=== PATIENT | male | born 1950 | race Two or more races ===

== ENCOUNTER 2024-06-05 15:46 | Inpatient (IN) | payer OTHER, MEDICARE, BC ==
--- NOTE | 2024-06-05 16:09 | ED ---
General Adult HPI - General Chief complaint: Shortness of Breath Stated complaint: echo Time Seen by Provider: 06/05/24 15:47 Source: patient, EMS, RN notes reviewed Mode of arrival: EMS Limitations: no limitations - History of Present Illness Initial comments: Patient is a 74-year-old male present to the emergency department as a transfer from [facility]. Patient has been having some chest discomfort and dyspnea over the past couple of weeks. Patient is currently symptom-free at this time. Symptoms are worse with lying down. No history of similar symptoms previously. Patient did have CT scan done there with concerns for pericardial effusion and was transferred to our emergency department. - Related Data Allergies Allergy/AdvReac Type Severity Reaction Status Date / Time No Known Allergies Allergy Verified 06/05/24 15:52 Review of Systems ROS Statement: Those systems with pertinent positive or pertinent negative responses have been documented in the HPI. ROS Other: All systems not noted in ROS Statement are negative. Constitutional: Denies: fever Eyes: Denies: eye pain ENT: Denies: ear pain Respiratory: Reports: as per HPI. Denies: cough Cardiovascular: Reports: as per HPI, chest pain, orthopnea Endocrine: Denies: fatigue Gastrointestinal: Denies: abdominal pain, vomiting Genitourinary: Denies: dysuria Musculoskeletal: Denies: back pain Past Medical History Past Medical History: Hyperlipidemia, Hypertension Past Surgical History: Orthopedic Surgery Smoking Status: Former smoker Past Alcohol Use History: Daily Past Drug Use History: None Reported General Exam Limitations: no limitations General appearance: alert, in no apparent distress Head exam: Present: normocephalic Eye exam: Present: normal appearance Neck exam: Present: normal inspection Respiratory exam: Present: normal lung sounds bilaterally Cardiovascular Exam: Present: regular rate, normal rhythm, normal heart sounds GI/Abdominal exam: Present: soft. Absent: tenderness Extremities exam: Present: normal inspection. Absent: pedal edema, calf tenderness Back exam: Present: normal inspection Neurological exam: Present: alert Psychiatric exam: Present: normal affect, normal mood Skin exam: Present: normal color Course Vital Signs 06/05/24 15:48 Temperature 98.4 F Pulse Rate 95 Respiratory 18 Rate Blood Pressure 148/84 O2 Sat by Pulse 98 Oximetry EKG Findings - EKG Results: EKG: interpreted by ERMD (Right bundle branch block), sinus rhythm, normal axis, normal ST/T Medical Decision Making - Medical Decision Making Was pt. sent in by a medical professional or institution (, [facility], [facility], urgent care, hospital, or group home...) When possible be specific @ -Patient was sent from [facility] Did you speak to anyone other than the patient for history (EMS, parent, family, police, friend...)? What history was obtained from this source @ -Speak with transferring physician Dr. Sanders Did you review nursing and triage notes (agree or disagree)? Why? @ -I reviewed and agree with nursing and triage notes Were old charts reviewed (outside hosp., previous admission, EMS record, old EKG, old radiological studies, urgent care reports/EKG's, group home records)? Report findings @ -Chart was reviewed from [facility] Differential Diagnosis (chest pain, altered mental status, abdominal pain women, abdominal pain men, vaginal bleeding, weakness, fever, dyspnea, syncope, headache, dizziness, GI bleed, back pain, seizure, CVA, palpatations, mental health, musculoskeletal)? @ -Differential Dyspnea: Coronary syndrome, arrhythmia, tamponade, asthma, COPD, pulmonary embolism, pneumonia, pneumothorax, pulmonary effusion, anaphylaxis, diabetic ketoacidosis, flailed chest, pulmonary contusion, diaphragmatic rupture, anemia, neuromuscular, this is not meant to be an all-inclusive list. EKG interpreted by me (3pts min.). @ -As above X-rays interpreted by me (1pt min.). @ -None done CT interpreted by me (1pt min.). @ -None done U/S interpreted by me (1pt. min.). @ -None done What testing was considered but not performed or refused? (CT, X-rays, U/S, labs)? Why? @ -None What meds were considered but not given or refused? Why? @ -None Did you discuss the management of the patient with other professionals (professionals i.e. , [facility], [facility], lab, RT, psych nurse, high school social science teacher, business lawyer, teacher, promotions officer, bilingual case manager)? Give summary @ -Case was discussed with Dr. Barron who will admit covering Dr. Banerjee. Case also discussed with Dr. Rendon who will consult with cardiology Was smoking cessation discussed for >3mins.? @ -No Was critical care preformed (if so, how long)? @ -No Were there social determinants of health that impacted care today? How? (Homelessness, low income, unemployed, alcoholism, drug addiction, transportation, low edu. Level, literacy, decrease access to med. care, snf, rehab)? @ -No Was there de-escalation of care discussed even if they declined (Discuss DNR or withdrawal of care, Hospice)? DNR status @ -No What co-morbidities impacted this encounter? (DM, HTN, Smoking, COPD, CAD, Cancer, CVA, ARF, Chemo, Hep., AIDS, mental health diagnosis, sleep apnea, morbid obesity)? @ -None Was patient admitted / discharged? Hospital course, mention meds given and route, prescriptions, significant lab abnormalities, going to OR and other pertinent info. @ -Patient presents as a transfer from [facility]. Patient has had some chest discomfort and dyspnea and orthopnea over the past couple of weeks, somewhat progressive, near symptom-free at this time. CT scan done there concerning for pericardial effusion. Patient will be admitted with cardiac consult. Admission orders written. Labs appear to be limited from there and additional labs are reordered here. Undiagnosed new problem with uncertain prognosis? @ -No Drug Therapy requiring intensive monitoring for toxicity (Heparin, Nitro, Insulin, Cardizem)? @ -No Were any procedures done? @ -No Diagnosis/symptom? @ -Pericardial effusion Acute, or Chronic, or Acute on Chronic? @ -Acute Uncomplicated (without systemic symptoms) or Complicated (systemic symptoms)? @ -Complicated with associated chest discomfort and dyspnea Side effects of treatment? @ -No Exacerbation, Progression, or Severe Exacerbation? @ -No Poses a threat to life or bodily function? How? (Chest pain, [place], [place], pneumonia, PE, COPD, DKA, ARF, appy, cholecystitis, CVA, Diverticulitis, Homicidal, Suicidal, threat to staff... and all critical care pts) @ -Threat to cardiac function - Lab Data Result diagrams: 06/05/24 16:16 Lab Results 06/05/24 Range/Units 16:16 WBC 8.8 (3.8-10.6) k/uL RBC 3.82 L (4.30-5.90) m/uL Hgb 12.0 L (13.0-17.5) gm/dL Hct 35.6 L (39.0-53.0) % MCV 93.3 (80.0-100.0) fL MCH 31.4 (25.0-35.0) pg MCHC 33.6 (31.0-37.0) g/dL RDW 12.3 (11.5-15.5) % Plt Count 363 (150-450) k/uL MPV 8.7 Neutrophils % 88 % Lymphocytes % 6 % Monocytes % 4 % Eosinophils % 2 % Basophils % 0 % Neutrophils # 7.7 (1.3-7.7) k/uL Lymphocytes # 0.5 L (1.0-4.8) k/uL Monocytes # 0.4 (0-1.0) k/uL Eosinophils # 0.1 (0-0.7) k/uL Basophils # 0.0 (0-0.2) k/uL Disposition Clinical Impression: Pericardial effusion Disposition: ADMITTED IP TO THIS HOSP Is patient prescribed a controlled substance at d/c from ED?: No Referrals: Lorie Reveles MD [Primary Care Provider] - 1-2 days Time of Disposition: 16:36
[2024-06-05 16:26] LABS: Basophils % (A) 0 %; Eosinophils # (A) 0.1 k/uL (0-0.7); Eosinophils % (A) 2 %; HCT 35.6 % (39.0-53.0); Lymphocytes # (A) 0.5 k/uL (1.0-4.8); Lymphocytes % (A) 6 %; MCH 31.4 pg (25.0-35.0); MCHC 33.6 g/dL (31.0-37.0); MCV 93.3 fL (80.0-100.0); Mean Platelet Volume 8.7; Monocytes # (A) 0.4 k/uL (0-1.0); Monocytes % (A) 4 %; Neutrophils # (A) 7.7 k/uL (1.3-7.7); Neutrophils % (A) 88 %; Platelet Count 363 k/uL (150-450); RBC 3.82 m/uL (4.30-5.90); RDW 12.3 % (11.5-15.5); WBC 8.8 k/uL (3.8-10.6)
[2024-06-05] MEDS ORDERED: NALOXONE 0.4 MG/ML 1 ML VIAL IV PRN (16:38)
[2024-06-05 16:41] LABS: INR 1.2 (<1.2); Prothrombin Time 12.6 sec (10.0-12.5)
[2024-06-05] MEDS: PANTOPRAZOLE 40 MG/10 ML VIAL IV SCH (16:51)
[2024-06-05 17:17] LABS: ALT 323 U/L (4-49); AST 298 U/L (17-59); African American GFR (CKD) 83 (>60 ml/min/1.73 sqM); Albumin 3.2 g/dL (3.5-5.0); Alkaline Phosphatase 175 U/L (38-126); Anion Gap 6 mmol/L; Blood Urea Nitrogen 16 mg/dL (9-20); Calcium 9.1 mg/dL (8.4-10.2); Carbon Dioxide 28 mmol/L (22-30); Chloride 97 mmol/L (98-107); Glucose 168 mg/dL (74-99); Magnesium 1.9 mg/dL (1.6-2.3); Non-African American GFR(CKD) 72 (>60 ml/min/1.73 sqM); Potassium 3.9 mmol/L (3.5-5.1); Sodium 131 mmol/L (137-145); Total Bilirubin 0.9 mg/dL (0.2-1.3)
[2024-06-05 17:25] LABS: NT-Pro-B-Type Natriuretic Pept 980 pg/mL
--- NOTE | 2024-06-05 17:51 | CA ---
Transthoracic Echo Report Name: Facundo Gamble Age: 74 Gender: M : 1950 Exam Date: 06/05/2024 16:42 Exam Location: [facility] Ht (in): 70 Wt (lb): 221 Ordering Physician: Mulugeta Jenkins DO Attending/Referring Phys: [employer] Consultant Gabby Chan RDCS Procedure CPT: Indications: pericardial effusion Cardiac Hx: Technical Quality: Technically difficult study Contrast 1: Definity Total Dose (mL): 2 Contrast 2: Total Dose (mL): MEASUREMENTS (Male / Female) Normal Values 2D ECHO LV Diastolic Diameter PLAX 5.1 cm 4.2 - 5.9 / 3.9 - 5.3 cm LV Systolic Diameter PLAX 3.3 cm IVS Diastolic Thickness 1.0 cm 0.6 - 1.0 / 0.6 - 0.9 cm LVPW Diastolic Thickness 1.0 cm 0.6 - 1.0 / 0.6 - 0.9 cm LV Relative Wall Thickness 0.4 LVOT Diameter 2.3 cm LV Diastolic Volume MOD BP 90.0 cm??? 67 - 155 / 56 - 104 cm??? LV Systolic Volume MOD BP 26.6 cm??? 22 - 58 / 19 - 49 cm??? LV Ejection Fraction MOD BP 70.5 % >= 55 % LV Cardiac Index MOD BP 2671.8 cm???/min???m??? LV Diastolic Volume MOD 4C 104.5 cm??? LV Systolic Volume MOD 4C 28.4 cm??? LV Ejection Fraction MOD 4C 72.8 % LV Cardiac Index MOD 4C 3207.4 cm???/min???m??? LV Diastolic Length 4C 7.9 cm LV Systolic Length 4C 6.2 cm LV Diastolic Volume MOD 2C 76.7 cm??? LV Systolic Volume MOD 2C 23.6 cm??? LV Ejection Fraction MOD 2C 69.2 % LV Cardiac Index MOD 2C 2235.7 cm???/min???m??? LV Diastolic Length 2C 8.0 cm LV Systolic Length 2C 5.9 cm LA Volume 51.4 cm??? 18 - 58 / 22 - 52 cm??? LA Volume Index 22.8 cm???/m??? 16 - 28 cm???/m??? Ascending Aorta Diameter 3.5 cm DOPPLER AV Peak Velocity 137.2 cm/s AV Peak Gradient 7.5 mmHg AV Mean Velocity 105.7 cm/s AV Mean Gradient 4.8 mmHg AV Velocity Time Integral 27.1 cm LVOT Peak Velocity 105.4 cm/s LVOT Peak Gradient 4.4 mmHg LVOT Velocity Time Integral 20.3 cm LVOT Stroke Volume 84.5 cm??? LVOT Stroke Volume Index 38.8 ml/m??? LVOT Cardiac Index 3559.7 cm???/min???m??? AV Area Cont Eq vti 3.1 cm??? AV Area Cont Eq pk 3.2 cm??? PV Peak Velocity 93.9 cm/s PV Peak Gradient 3.5 mmHg FINDINGS Left Ventricle Left ventricular ejection fraction is estimated at 60-65 %. Left ventricular cavity size normal. Left ventricular wall thickness normal. No obvious regional wall motion abnormalities. Right Ventricle Normal right ventricular size with mildly reduced function. Unable to estimate the right ventricular systolic pressure. Right Atrium Normal right atrial size. Left Atrium Normal left atrial size. Mitral Valve Structurally normal mitral valve. No mitral stenosis, regurgitation or prolapse. Aortic Valve Trileaflet aortic valve. No aortic stenosis. No aortic regurgitation. Tricuspid Valve Structurally normal tricuspid valve. No tricuspid stenosis. No tricuspid regurgitation. Pulmonic Valve Pulmonic valve not well visualized. No pulmonic stenosis. No pulmonic regurgitation. Pericardium Small to moderate pericardial effusion. . Left pleural effusion. Aorta Normal size aortic root and proximal ascending aorta. CONCLUSIONS Diagnosis pericardial effusion Preserved LV size systolic function Moderate pericardial effusion without significant respiratory variation/tamponade physiology Appears exudative especially at the base of the ventricles Large pleural effusion Previewed by: Dr. Calixto Wick MD (Electronically Signed) Final Date: 05 June 2024 17:50
--- NOTE | 2024-06-05 19:15 | P.HPIM ---
History of Present Illness H&P Date: 06/05/24 Chief Complaint: Chest heaviness Patient is a 74-year-old male with a past medical history of hypertension, hyperlipidemia, history of CVA with right-sided residual weakness, atrial fibrillation paroxysmal on anticoagulation with Eliquis. Patient was sent to ER from [facility] due to concern for pericardial effusion as per CT report. Patient is somewhat poor historian. According to his at bedside he has been having chest discomfort and shortness of breath since May 22. He woke up with neck pain and after eating he was not feeling well. He felt chest discomfort and a very heavy and had trouble going to his car. He also had a low-grade fever the next day. Next day he felt better and has been doing good for about a week and he will go to gym. Last Sunday patient has been dragging and more fatigued and his BP was also low at home. He went to ER and had blood workup showed his sodium was low. He has been drinking plenty of water and went to see his primary care physician yesterday. Patient was started on antibiotics azithromycin for possible pneumonia and was also told low sodium and acute kidney injury. He was given a dose of Lasix and started on antibiotics and prednisone. Was also given potassium supplementation. Patient has not been feeling well and went back to hospital. He had CT chest done which is concerning for pericardial effusion. Patient was transferred to [facility] for further evaluation by cardiology. EKG showed sinus rhythm with frequent supraventricular premature complexes. Laboratory data showed WBC 8.8 hemoglobin 12.0 and platelets 363 sodium 131 potassium 3.9 chloride 97 bicarb is 28 BUN 16 and creatinine 1.03 and blood sugar 168 Liver enzymes elevated at AST 298, ALT 333 and alk phos 175 and troponin x 1 negative proBNP 980 and albumin 3.2. Review of Systems Constitutional: Patient denies any fever or chills . Generalized weakness and fatigue.. Abdomen: Patient denied nausea vomiting and diarrhea and abdominal pain. Cardiovascular: Patient complains of chest discomfort and short of breath no palpitations. Leg swelling. Respiratory: patient denied any cough or sputum production. Positive for shortness of breath Neurologic: Patient denied any numbness or tingling. no headache. Musculoskeletal: Patient denies any complaints of joint swelling or deformity. Skin: Negative Psychiatric: Negative Endocrine: No heat or cold intolerance. No recent weight gain. Genitourinary: No dysuria or hematuria. All other 14 point ROS negative except the above Past Medical History Past Medical History: Hyperlipidemia, Hypertension Past Surgical History: Orthopedic Surgery Smoking Status: Former smoker Past Alcohol Use History: Daily Past Drug Use History: None Reported Medications and Allergies Home Medications Medication Instructions Recorded Confirmed Type Apixaban [Eliquis] 5 mg PO BID 06/05/24 06/05/24 History Aspirin EC [Ecotrin Low Dose] 81 mg PO DAILY 06/05/24 06/05/24 History Azithromycin [Zithromax Z Pack] See Taper PO DIRECTED 06/05/24 06/05/24 History Cholecalciferol [Vitamin D3 (25 50 mcg PO DAILY 06/05/24 06/05/24 History Mcg = 1000 Iu)] Furosemide [Lasix] 20 mg PO DAILY 06/05/24 06/05/24 History Multivit-Min/FA/Lycopen/Lutein 1 tab PO DAILY 06/05/24 06/05/24 History [Centrum Silver Tablet] Potassium Chloride ER [K-Dur 20] 20 meq PO DAILY 06/05/24 06/05/24 History Rosuvastatin Calcium [Crestor] 40 mg PO HS 06/05/24 06/05/24 History Sotalol [Betapace] 40 mg PO BID 06/05/24 06/05/24 History Vitamin C W/Zinc 1000mg 1 tab PO DAILY 06/05/24 06/05/24 History predniSONE [Deltasone] 40 mg PO DAILY 06/05/24 06/05/24 History Allergies Allergy/AdvReac Type Severity Reaction Status Date / Time No Known Allergies Allergy Verified 06/05/24 18:22 Physical Exam Vitals: Vital Signs Temp Pulse Resp BP Pulse Ox 06/05/24 18:17 99 20 142/88 97 06/05/24 16:51 93 16 140/85 94 L 06/05/24 15:48 98.4 F 95 18 148/84 98 Intake and Output 06/05/24 06/05/24 06/05/24 06:59 14:59 22:59 Other: Weight 100.244 kg PHYSICAL EXAMINATION: Patient is lying in the bed comfortably, no acute distress, awake alert and oriented.. HEENT: Normocephalic. Neck is supple. Pupils reactive. Nostrils clear. Oral cavity is moist. Neck reveals no JVD, carotid bruits, or thyromegaly. CHEST EXAMINATION: Trachea is central. Symmetrical expansion. Left basilar crackles. No wheezing or rhonchi. Nonlabored breathing.. CARDIAC: Normal S1, S2 with no gallops. No murmurs ABDOMEN: Soft. Bowel sounds normal. No organomegaly. No abdominal bruits. Extremities: Bilateral lower extremity trace edema right greater than left. No clubbing or cyanosis Neurologically awake, alert, oriented x3 right side residual weakness upper extremity more than lower extremity. Skin: No rash or skin lesions. Psychiatric: Coperative. Nonsuicidal Musculoskeletal: No joint swelling or deformity. Results CBC & Chem 7: 06/05/24 16:16 06/05/24 16:17 Labs: Abnormal Lab Results - Last 24 Hours (Table) 06/05/24 06/05/24 06/05/24 Range/Units 16:16 16:16 16:17 RBC 3.82 L (4.30-5.90) m/uL Hgb 12.0 L (13.0-17.5) gm/dL Hct 35.6 L (39.0-53.0) % Lymphocytes # 0.5 L (1.0-4.8) k/uL PT 12.6 H (10.0-12.5) sec INR 1.2 H (<1.2) Sodium 131 L (137-145) mmol/L Chloride 97 L (98-107) mmol/L Glucose 168 H (74-99) mg/dL AST 298 H (17-59) U/L ALT 323 H (4-49) U/L Alkaline Phosphatase 175 H (38-126) U/L Total Protein 6.0 L (6.3-8.2) g/dL Albumin 3.2 L (3.5-5.0) g/dL Thrombosis Risk Factor Assmnt - DVT/VTE Prophylaxis DVT/VTE Prophylaxis: Pharmacologic Prophylaxis ordered Assessment and Plan Assessment: Worsening shortness of breath and chest discomfort Moderate pericardial effusion and pleural effusion. Elevated liver enzymes Hypovolemic hyponatremia Paroxysmal atrial fibrillation on anticoagulation with Eliquis History of CVA with right-sided residual weakness Hypertension Hyperlipidemia Prior history of smoking and alcohol use Plan: Patient will be continued on telemonitoring. Was given a dose of IV Lasix x Stat 2D echocardiogram was ordered. TSH level. Patient was started on home medications including sotalol. Will start back aspirin and Eliquis. Cardiology recommends no surgical intervention. Statins on hold due to elevated liver enzymes. Ultrasound liver was ordered. Continue to follow closely. Discussed with his at bedside in detail. Prognosis is guarded. Time with Patient: Greater than 30
[2024-06-05] MEDS: FUROSEMIDE 10 MG/ML 2 ML VIAL IV STA (19:23)
--- NOTE | 2024-06-05 19:35 | XR ---
EXAMINATION TYPE: XR chest 1V DATE OF EXAM: 06/05/2024 7:13 PM CLINICAL INDICATION:Male, 74 years old with history of Pleural effusion; [facility] COMPARISON: Chest radiographs from TECHNIQUE: XR chest 1V Frontal view of the chest. FINDINGS: There is interval increase in left-sided pleural effusion now partially obscuring portion of the left cardiac border. Cardiac silhouette is still enlarged. Right-sided atelectasis. No pneumothorax. No a cute osseous abnormalities. IMPRESSION: Stable cardiomegaly with no moderate left pleural effusion.
[2024-06-05 21:24] LABS: T4, Free (Free Thyroxine) 2.16 ng/dL (0.78-2.19)
[2024-06-05] MEDS: ATORVASTATIN 80 MG TAB PO SCH (21:31)
[2024-06-05] MEDS: SOTALOL 80 MG TAB PO SCH (21:31)
[2024-06-06] MEDS ORDERED: HEPARIN SODIUM,PORCINE 5,000 UNIT/ML 1 ML VIAL SQ SCH
[2024-06-06] MEDS: POTASSIUM CHLORIDE ER 20 MEQ TAB.ER PO SCH (08:10)
[2024-06-06 08:13] LABS: Basophils % (A) 0 %; Eosinophils # (A) 0.2 k/uL (0-0.7); Eosinophils % (A) 1 %; HGB 12.2 gm/dL (13.0-17.5); Lymphocytes # (A) 1.4 k/uL (1.0-4.8); Lymphocytes % (A) 10 %; MCH 30.7 pg (25.0-35.0); MCHC 32.9 g/dL (31.0-37.0); MCV 93.4 fL (80.0-100.0); Mean Platelet Volume 9.7; Monocytes % (A) 8 %; Neutrophils # (A) 11.1 k/uL (1.3-7.7); Neutrophils % (A) 80 %; Platelet Count 430 k/uL (150-450); RBC 3.96 m/uL (4.30-5.90); RDW 12.7 % (11.5-15.5); WBC 13.8 k/uL (3.8-10.6)
[2024-06-06] MEDS: predniSONE 20 MG TAB PO SCH (08:15)
[2024-06-06] MEDS: FUROSEMIDE 20 MG TAB PO SCH (08:15)
--- NOTE | 2024-06-06 08:19 | US ---
EXAMINATION TYPE: US abdomen limited DATE OF EXAM: 06/05/2024 COMPARISON: NONE CLINICAL INDICATION: Male, 74 years old with history of Elevated liver enzymes; Elevated liver enzyme s. No abdominal pain or abdominal surgeries. TECHNIQUE: Multiple sonographic images of the right upper quadrant are obtained. FINDINGS: EXAM MEASUREMENTS: Liver Length: 21.5 cm Gallbladder Wall: 0.3 cm CBD: Unable to visualize Right Kidney: 11.7 x 5.9 x 5.4 cm STUDENT SERVICES ADVISOR NOTES:*Limited due to overlying bowel gas and patient body habitus Pancreas: Head appears echogenic. Body/tail obscured by gas Liver: Enlarged. Visualized portions appear wnl Gallbladder: wnl as best seen Evidence for sonographic Sam's sign: No CBD: Obscured by overlying bowel gas Right Kidney: wnl as best seen IMPRESSION: 1. No evidence for acute process. 2. Mild hepatomegaly.
[2024-06-06 08:30] LABS: African American GFR (CKD) 84 (>60 ml/min/1.73 sqM); Anion Gap 7 mmol/L; Blood Urea Nitrogen 17 mg/dL (9-20); Calcium 9.5 mg/dL (8.4-10.2); Carbon Dioxide 27 mmol/L (22-30); Chloride 99 mmol/L (98-107); Glucose 106 mg/dL (74-99); Non-African American GFR(CKD) 73 (>60 ml/min/1.73 sqM); Potassium 3.8 mmol/L (3.5-5.1); Sodium 133 mmol/L (137-145)
[2024-06-06 11:42] LABS: Hepatitis A Antibody IgM Nonreactive (Nonreactive); Hepatitis B Core IgM Nonreactive (Nonreactive); Hepatitis B Surface Antigen Nonreactive (Nonreactive); Hepatitis C IgG Antibody Nonreactive (Nonreactive)
[2024-06-06] MEDS: FUROSEMIDE 10 MG/ML 4 ML VIAL IV SCH (16:02)
[2024-06-06] MEDS: ASPIRIN 81 MG PO SCH (16:02)
[2024-06-06] MEDS: ATORVASTATIN 80 MG TAB PO SCH (22:03)
--- NOTE | 2024-06-06 22:22 | P.CRDCN ---
History of Present Illness Consult date: 06/06/24 History of present illness: HISTORY OF PRESENTING ILLNESS 74-year-old with PMH of hypertension, hyperlipidemia, paroxysmal atrial fibrillation on anticoagulation with Eliquis, history of CVA with right-sided residual deficit. He initially presented to [facility] because of concerns of pericardial effusion noted on CT chest. Apparently patient has been having some chest discomfort and shortness of breath since mid May. He is also been feeling more fatigued. He was started on outpatient antibiotics for possible pneumonia. He followed up with his primary forex trader and he wanted to perform an echocardiogram, but due to lack of ability of echocardiogram, he was sent to [facility] in [place]. EKG showed sinus rhythm with frequent supraventricular premature complexes. Laboratory data showed WBC 8.8 hemoglobin 12.0 and platelets 363 sodium 131 potassium 3.9 chloride 97 bicarb is 28 BUN 16 and creatinine 1.03 and blood sugar 168 Liver enzymes elevated at AST 298, ALT 333 and alk phos 175 and troponin x 1 negative proBNP 980 and albumin 3.2. REVIEW OF SYSTEMS 14 point review of system is negative except what is mentioned above in HPI. PHYSICAL EXAMINATION Vital signs reviewed. Head: Normocephalic. Eyes: Sclerae nonicteric. Neck: Brisk carotid upstroke, no jugular venous distention. Lungs: Poor respiratory effort, clear lungs, no wheezing or rhonchi Heart: Irregular pulse, S1-S2, mild systolic murmur audible Abdomen: Soft nontender, positive bowel sounds. Extremities: No edema, intact distal pulses. Neuro: Alert, oritented, no focal deficits. Detailed neuro exam was not performed. ASSESSMENT Acute HFpEF exacerbation Large pleural effusion Moderate pericardial effusion with no signs of tamponade physiology, appears to be more chronic than acute. Paroxysmal atrial fibrillation, currently sinus Prior CVA with residual right-sided deficit Echocardiogram showed moderate pericardial effusion without any respiratory vari ation or tamponade physiology. IVC was not dilated. There was a large pleural effusion noticed. PLAN Patient has a large pleural effusion but patient is comfortable without any shortness of breath or requiring supplemental oxygen. Consider pulmonary consult for possible tapping, however I do not anticipate him having paracentesis as he is comfortable. Lasix IV daily He is on sotalol 40 mg twice daily for A-fib. Will continue. He is on aspirin and Lipitor. Will continue. From tomorrow consider Bumex 1 mg p.o. daily. Anticipate discharge in next 24 to 48 hours Consider ischemic evaluation if he has not had already got 1 on outpatient basis Addy Rendon MD, FACC, RPVI Thank you for allowing [facility] to participate in this patient's care. Feel free to reach out in case of any followup questions. Past Medical History Past Medical History: Atrial Fibrillation, CVA/TIA, Hyperlipidemia, Hypertension Additional Past Medical History / Comment(s): CVA approximately 7 years, agent orange exposure, History of Any Multi-Drug Resistant Organisms: None Reported Past Surgical History: Orthopedic Surgery Additional Past Surgical History / Comment(s): back surgery Past Anesthesia/Blood Transfusion Reactions: No Reported Reaction Past Psychological History: No Psychological Hx Reported Smoking Status: Former smoker Past Alcohol Use History: Daily Past Drug Use History: None Reported Medications and Allergies Home Medications Medication Instructions Recorded Confirmed Type Apixaban [Eliquis] 5 mg PO BID 06/05/24 06/05/24 History Aspirin EC [Ecotrin Low Dose] 81 mg PO DAILY 06/05/24 06/05/24 History Azithromycin [Zithromax Z Pack] See Taper PO DIRECTED 06/05/24 06/05/24 History Cholecalciferol [Vitamin D3 (25 50 mcg PO DAILY 06/05/24 06/05/24 History Mcg = 1000 Iu)] Furosemide [Lasix] 20 mg PO DAILY 06/05/24 06/05/24 History Multivit-Min/FA/Lycopen/Lutein 1 tab PO DAILY 06/05/24 06/05/24 History [Centrum Silver Tablet] Potassium Chloride ER [K-Dur 20] 20 meq PO DAILY 06/05/24 06/05/24 History Rosuvastatin Calcium [Crestor] 40 mg PO HS 06/05/24 06/05/24 History Sotalol [Betapace] 40 mg PO BID 06/05/24 06/05/24 History Vitamin C W/Zinc 1000mg 1 tab PO DAILY 06/05/24 06/05/24 History predniSONE [Deltasone] 40 mg PO DAILY 06/05/24 06/05/24 History Chlorthalidone [Hygroton] 12.5 mg PO DAILY 06/06/24 06/06/24 History lisinopriL [Zestril] 20 mg PO DAILY 06/06/24 06/06/24 History Allergies Allergy/AdvReac Type Severity Reaction Status Date / Time No Known Allergies Allergy Verified 06/05/24 18:22 Physical Exam Vitals: Vital Signs Temp Pulse Pulse Resp BP BP Pulse Ox 06/06/24 21:00 98 F 94 19 109/79 96 06/06/24 16:08 98.6 F 86 16 144/90 98 06/06/24 14:00 16 06/06/24 11:20 98 F 94 18 144/90 98 06/06/24 11:13 98.0 F 68 18 145/80 98 06/06/24 10:30 98.3 F 84 18 131/83 98 06/06/24 06:08 86 16 121/82 96 06/06/24 02:57 89 16 132/86 98 06/06/24 00:19 84 18 114/73 97 Intake and Output 06/06/24 06/06/24 06/06/24 06:59 14:59 22:59 Intake Total 658 Output Total 875 Balance -217 Intake: Oral 658 Output: Urine 875 Other: Voiding Method Urinal # Voids 1 Weight 100.244 kg Results 06/06/24 07:30 06/06/24 07:30 Cardiac Enzymes 06/05/24 Range/Units 22:04 Troponin I <0.012 (0.000-0.034) ng/mL CBC 06/06/24 Range/Units 07:30 WBC 13.8 H (3.8-10.6) k/uL RBC 3.96 L (4.30-5.90) m/uL Hgb 12.2 L (13.0-17.5) gm/dL Hct 37.0 L (39.0-53.0) % Plt Count 430 (150-450) k/uL Comprehensive Metabolic Panel 06/06/24 Range/Units 07:30 Sodium 133 L (137-145) mmol/L Potassium 3.8 (3.5-5.1) mmol/L Chloride 99 (98-107) mmol/L Carbon Dioxide 27 (22-30) mmol/L BUN 17 (9-20) mg/dL Creatinine 1.02 (0.66-1.25) mg/dL Glucose 106 H (74-99) mg/dL Calcium 9.5 (8.4-10.2) mg/dL Current Medications Generic Name Dose Route Start Last Admin Trade Name Freq PRN Reason Stop Dose Admin Aspirin 81 mg 06/06/24 14:45 06/06/24 16:02 Aspirin 81 Mg PO 81 mg DAILY JENNIFER Administration Atorvastatin Calcium 80 mg 06/06/24 21:00 06/06/24 22:03 Atorvastatin 80 Mg Tab PO 80 mg HS JENNIFER Administration Furosemide 40 mg 06/06/24 14:45 06/06/24 16:02 Furosemide 10 Mg/Ml 4 Ml Vial IV 40 mg DAILY JENNIFER Administration Naloxone HCl 0.2 mg 06/05/24 16:38 Naloxone 0.4 Mg/Ml 1 Ml Vial IV Q2M PRN Opioid Reversal Pantoprazole Sodium 40 mg 06/05/24 16:45 06/06/24 08:09 Pantoprazole 40 Mg/10 Ml Vial IV 40 mg DAILY JENNIFER Administration Potassium Chloride 20 meq 06/06/24 09:00 06/06/24 08:10 Potassium Chloride Er 20 Meq Tab.Er PO 20 meq DAILY JENNIFER Administration Prednisone 40 mg 06/06/24 09:00 06/06/24 08:15 Prednisone 20 Mg Tab PO 40 mg DAILY JENNIFER Administration Sotalol HCl 40 mg 06/05/24 21:00 06/06/24 22:03 Sotalol 80 Mg Tab PO 40 mg BID JENNIFER Administration Intake and Output 06/06/24 06/06/24 06/06/24 06:59 14:59 22:59 Intake Total 658 Output Total 875 Balance -217 Intake: Oral 658 Output: Urine 875 Other: Voiding Method Urinal # Voids 1 Weight 100.244 kg Patient Weight 06/07/24 06:59 Weight 100.244 kg 06/06/24 07:30 06/06/24 07:30
[2024-06-07 03:35] VITALS: RESP 16; TEMP 98.2
--- NOTE | 2024-06-07 07:46 | P.PN ---
Subjective Progress Note Date: 06/06/24 Patient is a 74-year-old male with a past medical history of hypertension, hyperlipidemia, history of CVA with right-sided residual weakness, atrial fibrillation paroxysmal on anticoagulation with Eliquis. Patient was sent to ER from [facility] due to concern for pericardial effusion as per CT report. Patient is somewhat poor historian. According to his at bedside he has been having chest discomfort and shortness of breath since May 22. He woke up with neck pain and after eating he was not feeling well. He felt chest discomfort and a very heavy and had trouble going to his car. He also had a low-grade fever the next day. Next day he felt better and has been doing good for about a week and he will go to gym. Last Sunday patient has been dragging and more fatigued and his BP was also low at home. He went to ER and had blood workup showed his sodium was low. He has been drinking plenty of water and went to see his primary care physician yesterday. Patient was started on antibiotics azithromycin for possible pneumonia and was also told low sodium and acute kidney injury. He was given a dose of Lasix and started on antibiotics and prednisone. Was also given potassium supplementation. Patient has not been feeling well and went back to hospital. He had CT chest done which is concerning for pericardial effusion. Patient was transferred to [facility] for further evaluation by cardiology. EKG showed sinus rhythm with frequent supraventricular premature complexes. Laboratory data showed WBC 8.8 hemoglobin 12.0 and platelets 363 sodium 131 potassium 3.9 chloride 97 bicarb is 28 BUN 16 and creatinine 1.03 and blood sugar 168 Liver enzymes elevated at AST 298, ALT 333 and alk phos 175 and troponin x 1 negative proBNP 980 and albumin 3.2. 06/06/2024 Patient is seen and evaluated in follow-up today being followed by cardiology currently awaiting consultation. Patient was sent here from hospital up in the [facility] area for cardiac evaluation as they were concerned with pericardial effusion. Patient has been having shortness of breath that has been progressively getting worse. Patient was started on steroids as well and white count is mildly elevated likely reactive as patient does not appear infectious. Patient did receive some empiric antibiotics although procalcitonin is low will hold off on continuing antibiotics for now. Review of systems: Constitutional: No reports of fatigue, fever, or chills Cardiovascular: No reports of chest pain or palpitations Respiratory: No reports of shortness of breath or cough GI: No reports of nausea, vomiting, or diarrhea : No reports of dysuria or retention Neurovascular: No reports of weakness or numbness All medications have been reviewed PHYSICAL EXAMINATION: Patient is lying in the bed comfortably, no acute distress, awake alert and oriented.. HEENT: Normocephalic. Neck is supple. Pupils reactive. Nostrils clear. Oral cavity is moist. Neck reveals no JVD, carotid bruits, or thyromegaly. CHEST EXAMINATION: Trachea is central. Symmetrical expansion. Left basilar crackles. No wheezing or rhonchi. Nonlabored breathing.. CARDIAC: Normal S1, S2 with no gallops. No murmurs ABDOMEN: Soft. Bowel sounds normal. No organomegaly. No abdominal bruits. Extremities: Bilateral lower extremity trace edema right greater than left. No clubbing or cyanosis Neurologically awake, alert, oriented x3 right side residual weakness upper extremity more than lower extremity. Skin: No rash or skin lesions. Psychiatric: Coperative. Nonsuicidal Musculoskeletal: No joint swelling or deformity. Assessment: Worsening shortness of breath and chest discomfort Moderate pericardial effusion and pleural effusion noted on imaging. Elevated liver enzymes Hypovolemic hyponatremia, likely secondary to diuretic use Paroxysmal atrial fibrillation on anticoagulation with Eliquis History of CVA with right-sided residual weakness Hypertension Hyperlipidemia Prior history of smoking and alcohol use Plan: Patient will be continued on telemonitoring. Patient being started on 40 mg of IV Lasix daily and will follow-up with repeat labs to monitor kidney functions and electrolytes. Replace electrolytes per protocol 2D echo ordered and pending along with cardiology consultation. Home medications including Eliquis and sotalol being resumed. Continue to hold statins for now due to elevated liver enzymes and we will follow-up on repeat labs Patient was given some antibiotics empirically for possible pneumonia although suspicion is low and procalcitonin is 0.17. Will hold on further antibiotics for now. Patient is afebrile. White count was mildly elevated and reactive secondary to receiving steroids. Patient is continued on steroids at this time. Encouraged increased activity as tolerated Medical records release to be signed from previous hospitals as reports they have been in and out of the ERs and hospitals a few times over the last few weeks as the shortness of breath has progressed. Encouraged to increase activity as tolerated Continue to elevate lower extremities while at rest. reports his lower extremities are mildly swollen although on exam, no real swelling or edema appreciated. The impression and plan of care has been dictated by Malorie Roblero, Nurse Practitioner as directed. Dr. Anderson MD I have performed a history and examination and MDM of this patient, discussed the same with the dictator, and agree with the dictator's assessment and plan as written ,documented as a scribe. Based on total visit time, I have performed more than 50% of the visit. Objective - Vital Signs Vital signs: Vital Signs Temp 98.3 F 06/06/24 10:30 Pulse 84 06/06/24 10:30 Resp 18 06/06/24 10:30 BP 131/83 06/06/24 10:30 Pulse Ox 98 06/06/24 10:30 FiO2 Intake & Output 06/05/24 06/06/24 06/06/24 18:59 06:59 18:59 Weight 100.244 kg - Labs CBC & Chem 7: 06/06/24 07:30 06/06/24 07:30 Labs: Abnormal Lab Results - Last 24 Hours (Table) 06/05/24 06/05/24 06/05/24 Range/Units 16:16 16:16 16:17 WBC (3.8-10.6) k/uL RBC 3.82 L (4.30-5.90) m/uL Hgb 12.0 L (13.0-17.5) gm/dL Hct 35.6 L (39.0-53.0) % Neutrophils # (1.3-7.7) k/uL Lymphocytes # 0.5 L (1.0-4.8) k/uL PT 12.6 H (10.0-12.5) sec INR 1.2 H (<1.2) Sodium 131 L (137-145) mmol/L Chloride 97 L (98-107) mmol/L Glucose 168 H (74-99) mg/dL AST 298 H (17-59) U/L ALT 323 H (4-49) U/L Alkaline Phosphatase 175 H (38-126) U/L Total Protein 6.0 L (6.3-8.2) g/dL Albumin 3.2 L (3.5-5.0) g/dL TSH (0.465-4.680) mIU/L 06/05/24 06/06/24 06/06/24 Range/Units 18:58 07:30 07:30 WBC 13.8 H (3.8-10.6) k/uL RBC 3.96 L (4.30-5.90) m/uL Hgb 12.2 L (13.0-17.5) gm/dL Hct 37.0 L (39.0-53.0) % Neutrophils # 11.1 H (1.3-7.7) k/uL Lymphocytes # (1.0-4.8) k/uL PT (10.0-12.5) sec INR (<1.2) Sodium 133 L (137-145) mmol/L Chloride (98-107) mmol/L Glucose 106 H (74-99) mg/dL AST (17-59) U/L ALT (4-49) U/L Alkaline Phosphatase (38-126) U/L Total Protein (6.3-8.2) g/dL Albumin (3.5-5.0) g/dL TSH 0.088 L (0.465-4.680) mIU/L
[2024-06-07 10:13] LABS: African American GFR (CKD) 74 (>60 ml/min/1.73 sqM); Anion Gap 8 mmol/L; Blood Urea Nitrogen 20 mg/dL (9-20); Calcium 9.5 mg/dL (8.4-10.2); Carbon Dioxide 27 mmol/L (22-30); Chloride 98 mmol/L (98-107); Glucose 137 mg/dL (74-99); Magnesium 1.7 mg/dL (1.6-2.3); Non-African American GFR(CKD) 64 (>60 ml/min/1.73 sqM); Potassium 3.6 mmol/L (3.5-5.1); Sodium 133 mmol/L (137-145)
[2024-06-07 13:36] VITALS: BP 125/86
[2024-06-07] MEDS ORDERED: Magnesium Replacement Protocol 1 EACH MISC MISCELLANE PRN (14:16)
[2024-06-07] MEDS: MAGNESIUM SULFATE-D5W PMX 1 GM in DEXTROSE/WATER 1 100ML.BAG IVPB ONE (15:53)
[2024-06-07] MEDS: POTASSIUM CHLORIDE ER 20 MEQ TAB.ER PO STA (15:53)
[2024-06-07 16:57] VITALS: PULSE 92
--- NOTE | 2024-06-07 19:54 | P.PN ---
Subjective Progress Note Date: 06/07/24 HISTORY OF PRESENTING ILLNESS 74-year-old with PMH of hypertension, hyperlipidemia, paroxysmal atrial fib rillation on anticoagulation with Eliquis, history of CVA with right-sided residual deficit. He initially presented to [facility] because of concerns of pericardial effusion noted on CT chest. Apparently patient has been having some chest discomfort and shortness of breath since mid May. He is also been feeling more fatigued. He was started on outpatient antibiotics for possible pneumonia. He followed up with his primary roll bucker and he wanted to perform an echocardiogram, but due to lack of ability of echocardiogram, he was sent to [facility] in [place]. EKG showed sinus rhythm with frequent supraventricular premature complexes. Laboratory data showed WBC 8.8 hemoglobin 12.0 and platelets 363 sodium 131 potassium 3.9 chloride 97 bicarb is 28 BUN 16 and creatinine 1.03 and blood sugar 168 Liver enzymes elevated at AST 298, ALT 333 and alk phos 175 and troponin x 1 negative proBNP 980 and albumin 3.2. Progress note 06/07/2024 Patient is seen and examined at bedside this a.m. Patient is doing much better. He is not having any lightheadedness or dizziness. Does not appear volume overloaded. I feel that patient's small pleural effusion and small to moderate pericardial effusion with no tamponade physiology is most likely reactive from his recent pneumonia and is most likely send parapneumonic. I do not feel the need of tapping his pericardial effusion at this time. He is not have any symptoms. No chest pain. PHYSICAL EXAMINATION Vital signs reviewed. Head: Normocephalic. Eyes: Sclerae nonicteric. Neck: Brisk carotid upstroke, no jugular venous distention. Lungs: Poor respiratory effort, clear lungs, no wheezing or rhonchi Heart: Irregular pulse, S1-S2, mild systolic murmur audible Abdomen: Soft nontender, positive bowel sounds. Extremities: No edema, intact distal pulses. Neuro: Alert, oritented, no focal deficits. Detailed neuro exam was not performed. ASSESSMENT Acute HFpEF exacerbation Large pleural effusion Moderate pericardial effusion with no signs of tamponade physiology, appears to be more chronic than acute. Paroxysmal atrial fibrillation, currently sinus Prior CVA with residual right-sided deficit Echocardiogram showed moderate pericardial effusion without any respiratory variation or tamponade physiology. IVC was not dilated. There was a large pleural effusion noticed. PLAN Patient has a large pleural effusion but patient is comfortable without any shortness of breath or requiring supplemental oxygen. Patient is doing much better. He is not having any lightheadedness or dizziness. Does not appear volume overloaded. I feel that patient's small pleural effusion and small to moderate pericardial effusion with no tamponade physiology is most likely reactive from his recent pneumonia and is most likely send parapneumonic. I do not feel the need of tapping his pericardial effusion at this time. He is not have any symptoms. No chest pain. Responded well to IV Lasix. Will discontinue IV Lasix and start Lasix 20 mg which she was taking at home. Would recommend it for 30 days. He is on sotalol 40 mg twice daily for A-fib. Will continue. He is on aspirin and Crestor. Will continue. Will discontinue his chlorthalidone because of concerns of possible hyponatremia. Instead we will start him on Aldactone 25 mg daily for better potassium levels and add mild diuretic levels. Use lisinopril 20 mg as needed if SBP is more than 130 mmHg Consider ischemic evaluation on outpatient basis Okay to be discharged from cardiac standpoint Objective - Vital Signs Vital signs: Vital Signs Temp 98.2 F 06/07/24 08:00 Pulse 92 06/07/24 16:00 Resp 16 06/07/24 14:00 BP 125/86 06/07/24 12:00 Pulse Ox 96 06/07/24 12:00 FiO2 Intake & Output 06/07/24 06/07/24 06/08/24 06:59 18:59 06:59 Intake Total 540 476 Output Total 500 1400 Balance 40 -924 Weight 98.6 kg Intake: Oral 540 476 Output: Urine 500 1400 Other: Voiding Method Urinal Urinal # Voids 2 - Labs CBC & Chem 7: 06/06/24 07:30 06/07/24 09:24 Labs: Abnormal Lab Results - Last 24 Hours (Table) 06/07/24 Range/Units 09:24 Sodium 133 L (137-145) mmol/L Glucose 137 H (74-99) mg/dL
--- NOTE | 2024-07-04 20:24 | P.DS ---
Providers Date of admission: 06/05/24 16:38 Attending physician: Key Barron Consults: 06/05/24 16:38 Consult Physician Urgent Consulting Provider: Addy Rendon Consult Reason/Comments: Pericardial effusion Do you want consulting provider notified?: Already Contacted Primary care physician: [facility] Course: Final Diagnosis Worsening shortness of breath and chest discomfort Moderate pericardial effusion and pleural effusion noted on imaging. Elevated liver enzymes Hypovolemic hyponatremia, likely secondary to diuretic use Paroxysmal atrial fibrillation on anticoagulation with Eliquis History of CVA with right-sided residual weakness Hypertension Hyperlipidemia Prior history of smoking and alcohol use Discharge Disposition Patient stable for discharge home. He is advised to continue lasix and aldactone. He has a follow up scheduled with his usual esl instructional assistant Dr. Chin. Repeat blood work 2 to 3 days. Hospital Course Patient is a 74-year-old male with a past medical history of hypertension, hyperlipidemia, history of CVA with right-sided residual weakness, atrial fibrillation paroxysmal on anticoagulation with Eliquis. Patient was sent to ER from [facility] due to concern for pericardial effusion as per CT report. Patient is somewhat poor historian. According to his at bedside he has been having chest discomfort and shortness of breath since May 22. He woke up with neck pain and after eating he was not feeling well. He felt chest discomfort and a very heavy and had trouble going to his car. He also had a low-grade fever the next day. Next day he felt better and has been doing good for about a week and he will go to gym. Last Sunday patient has been dragging and more fatigued and his BP was also low at home. He went to ER and had blood workup showed his sodium was low. He has been drinking plenty of water and went to see his primary care physician yesterday. Patient was started on antibiotics azithromycin for possible pneumonia and was also told low sodium and acute kidney injury. He was given a dose of Lasix and started on antibiotics and prednisone. Was also given potassium supplementation. Patient has not been fe eling well and went back to hospital. He had CT chest done which is concerning for pericardial effusion. Patient was transferred to [facility] for further evaluation by cardiology. EKG showed sinus rhythm with frequent supraventricular premature complexes. Laboratory data showed WBC 8.8 hemoglobin 12.0 and platelets 363 sodium 131 potassium 3.9 chloride 97 bicarb is 28 BUN 16 and creatinine 1.03 and blood sugar 168 Liver enzymes elevated at AST 298, ALT 333 and alk phos 175 and troponin x 1 negative proBNP 980 and albumin 3.2. Patient was started on IV lasix for the pericardial effusion. Patient was given some antibiotics empirically for possible pneumonia although suspicion is low and procalcitonin is 0.17. Will hold on further antibiotics for now. Patient is afebrile. White count was mildly elevated and reactive secondary to receiving steroids. Patient is continued on steroids at this time. Medical records release to be signed from previous hospitals as reports they have been in and out of the ERs and hospitals a few times over the last few weeks as the shortness of breath has progressed. Cardiology felt the small pleural effusion and small to moderate pericardial effusion with no tamponade physiology is most likely reactive from his recent pneumonia and is most likely send parapneumonic. As patient is asymptomatic now and not having chest pain felt the pericardial effusion did not need to be tapped. His echocardiogram reveals EF 60-65%, moderate pericardial effusion, no tamponade, and large left pleural effusion. His sodium is now 133, his renal function is WNL. Hepatitis panel is nonreactive. He is on room air with oxygen saturations of 96%. He is cleared for DC home. Please see medication reconciliation for a list of current medications. Thank you for allowing us to participate in the care of this patient. The impression and plan of care has been dictated by Katya Morton, Nurse Practitioner as directed. Dr. Dave MD I have performed a history and physical examination and medical decision making of this patient, discussed the same with the dictator, and agree with the dictators assessment and plan as written, documented as a scribe. Based on total visit time, I have performed more than 50% of this visit. Patient Condition at Discharge: Fair Plan - Discharge Summary Discharge Rx Participant: Yes New Discharge Prescriptions: New Spironolactone [Aldactone] 25 mg PO DAILY #30 tablet Continue Vitamin C W/Zinc 1000mg 1 tab PO DAILY Apixaban [Eliquis] 5 mg PO BID Aspirin EC [Ecotrin Low Dose] 81 mg PO DAILY Rosuvastatin Calcium [Crestor] 40 mg PO HS Sotalol [Betapace] 40 mg PO BID Furosemide [Lasix] 20 mg PO DAILY #30 tab Cholecalciferol [Vitamin D3 (25 Mcg = 1000 Iu)] 50 mcg PO DAILY Multivit-Min/FA/Lycopen/Lutein [Centrum Silver Tablet] 1 tab PO DAILY Discontinued Azithromycin [Zithromax Z Pack] See Taper PO DIRECTED Potassium Chloride ER [K-Dur 20] 20 meq PO DAILY predniSONE [Deltasone] 40 mg PO DAILY Chlorthalidone [Hygroton] 12.5 mg PO DAILY lisinopriL [Zestril] 20 mg PO DAILY Discharge Medication List Apixaban [Eliquis] 5 mg PO BID 06/05/24 [History] Aspirin EC [Ecotrin Low Dose] 81 mg PO DAILY 06/05/24 [History] Cholecalciferol [Vitamin D3 (25 Mcg = 1000 Iu)] 50 mcg PO DAILY 06/05/24 [History] Multivit-Min/FA/Lycopen/Lutein [Centrum Silver Tablet] 1 tab PO DAILY 06/05/24 [History] Rosuvastatin Calcium [Crestor] 40 mg PO HS 06/05/24 [History] Sotalol [Betapace] 40 mg PO BID 06/05/24 [History] Vitamin C W/Zinc 1000mg 1 tab PO DAILY 06/05/24 [History] Furosemide [Lasix] 20 mg PO DAILY #30 tab 06/07/24 [Rx] Spironolactone [Aldactone] 25 mg PO DAILY #30 tablet 06/07/24 [Rx] Follow up Appointment(s)/Referral(s): Lorie Reveles MD [Primary Care Provider] - 1-2 days Chelsea Chin DO [REFERRING] - 1 Week Ambulatory/Diagnostic Orders: Basic Metabolic Panel [LAB.AMB] Time Frame: 3 Days, Location: None Selected Patient Instructions/Handouts: Pericardial Effusion (DC) Activity/Diet/Wound Care/Special Instructions: Please make an appointment to follow up with your known esl instructional assistant Continue lasix daily, aldactone has also been added Repeat blood work in 2 to 3 days Discharge Disposition: HOME SELF-CARE
== END 2024-06-07 17:02 | disposition home or self-care (01) | DRG 291 ==
LOC: EC 15:46 → 3SCARD 16:38
PROVIDERS: ADMIT Internal Medicine; ATTEND Internal Medicine
DX: I11.0 Hypertensive heart disease with heart failure (principal); I50.33 Acute on chronic diastolic (congestive) heart failure; I31.39 Other pericardial effusion (noninflammatory); E87.1 Hypo-osmolality and hyponatremia; I69.351 Hemiplegia and hemiparesis following cerebral infarction affecting right dominant side; E86.1 Hypovolemia; Z79.01 Long term (current) use of anticoagulants; I48.0 Paroxysmal atrial fibrillation; E78.5 Hyperlipidemia, unspecified; T50.2X5A Adverse effect of carbonic-anhydrase inhibitors, benzothiadiazides and other diuretics, initial encounter; I49.1 Atrial premature depolarization; Z87.01 Personal history of pneumonia (recurrent); Z87.891 Personal history of nicotine dependence; Z79.82 Long term (current) use of aspirin; Z79.899 Other long term (current) drug therapy; Z79.52 Long term (current) use of systemic steroids
CPT/HCPCS: 36415; 71045; 76705; 80048; 80053; 80074; 83735; 83880; 84145; 84439; 84443; 84484; 85025; 85610; 85730; 93005; 93306; 96374; 96375; 99285